=== PATIENT | female | born 1950 | race Caucasian/White ===

== ENCOUNTER 2019-05-26 13:35 | Outpatient (CLI) | payer MEDICARE ==
--- NOTE | 2019-05-26 18:22 | ULT ---
CAROTID ULTRASOUND: 05/26/19 Ultrasonography of the carotid and vertebral system was performed. Color duplex Doppler was used to a nalyze the vessels. The 2D images show plaque formation around each carotid bifurcation, a little more so on the left keshia n the right. Doppler analysis of the right carotid system showed peak velocities of 87/29 in the right ICA with a systolic velocity ratio of 1.44. Flows in the right ECA were 53/7. These values are all within normal limits. Left carotid flow was abnormal. Flows in the left ICA were 161/62 cm/s with a systolic velocity ratio of 3.09. These values are all high and suggest a moderate level stenosis in the 50-70% range. In the left ECA, flows were 102/11 which is more normal. Vertebral flow was found to be antegrade bilaterally. 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 Code T POS: HOME
== END 2019-05-26 13:36 | disposition home or self-care (01) ==
LOC: BURULT 13:35
PROVIDERS: ATTEND Nurse Practitioner
DX: R09.89 Other specified symptoms and signs involving the circulatory and respiratory systems (principal)
CPT/HCPCS: 93880

== ENCOUNTER 2021-03-16 03:04 | Emergency (ER) | payer MEDICARE ==
[2021-03-16 04:38] LABS: #Eosinphils 0.3 thou/uL (0.0-0.7); #Lymphocytes 1.1 thou/uL (1.20-3.40); #Monocytes 0.5 thou/uL (0.11-0.59); %Basophils 0.6 % (0.0-1.0); %Eosinophils 3.4 % (0.0-10.0); %Lymphocytes 14.3 % (21.0-51.0); %Monocytes 5.7 % (0.0-10.0); %Neutrophils 75.9 % (42.0-75.0); Hemoglobin 10.9 g/dL (12.0-16.0); Mean Corpuscular HGB CONC 30.7 g/dL (32.0-36.0); Mean Corpuscular Hemoglobin 26.7 pg (27.0-31.0); Mean Corpuscular Volume 86.7 fL (78.0-98.0); Mean Platelet Volume 7.7 fL (7.4-10.4); Platelet Count 215 thou/uL (130-400); RBC Distribution Width 13.4 % (11.5-14.5); Red Blood Cell (RBC) Count 4.09 mill/uL (4.20-5.40); White Blood Cell (WBC) Count 7.9 thou/uL (4.8-10.8)
[2021-03-16 04:51] LABS: ALT (SGPT) 26 U/L (8-55); AST (SGOT) 34 U/L (5-34); Albumin 4.4 g/dL (3.4-4.8); Alkaline Phosphatase 507 U/L (40-110); Anion Gap 16 mmol/L (10-20); BUN (Urea Nitrogen) 16 mg/dL (9.8-20.1); Bilirubin, Total 0.3 mg/dL (0.2-1.2); CRP (Inflammatory) 0.93 mg/dL (= or < 0.5); Calc. Creatinine Clearance 0 mL/min (70-130); Calcium 9.9 mg/dL (7.8-10.44); Carbon Dioxide 24 mmol/L (23-31); Chloride 107 mmol/L (98-107); Glucose 104 mg/dL (83-110); Potassium 4.4 mmol/L (3.5-5.1); Protein, Total 7.4 g/dL (5.8-8.1); Sodium 143 mmol/L (136-145)
[2021-03-16 05:06] LABS: Bilirubin Negative (Negative); Blood, Urine Negative (Negative); Clarity Clear (Clear); Glucose, Urine (Dipstick) Negative (Negative); Ketone, Urine Negative (Negative); Leukocyte Moderate (Negative); Nitrite Negative (Negative); Protein, Urine (Dipstick) Negative (Neg-Trace); Specific Gravity, Urine 1.015 (1.005-1.030); Urobilinogen 0.2 mg/dL (Less than 2); pH, Urine 5.5 (5.0-9.0)
[2021-03-16 05:14] LABS: Bacteria/HPF Rare-Few HPF (None Seen); Squamous Epithelial 0-3 HPF (0-3); Transitional Epithelial 0-3 HPF (None Seen); WBC/HPF 0-3 HPF (0-3)
[2021-03-16 05:15] LABS: RBC/HPF None Seen HPF (0-3)
== END 2021-03-16 05:35 | disposition short-term general hospital (02) ==
LOC: BURERS 03:04
DX: G93.89 Other specified disorders of brain (principal); R53.1 Weakness
CPT/HCPCS: 36415; 51702; 70450; 71045; 72128; 72131; 80053; 81003; 81015; 84484; 85025; 86140; 93005